=== PATIENT | female | born 1950 | race Hispanic/Latino ===

== ENCOUNTER 2021-05-30 06:33 | Day surgery (SDC) | payer OTHER ==
[2021-05-25 12:19] LABS: Urine Appearance CLEAR (Clear); Urine Bilirubin NEGATIVE (Negative); Urine Blood NEGATIVE (Negative); Urine Color YELLOW (Yellow); Urine Glucose NEGATIVE (Negative); Urine Protein NEGATIVE (Negative); Urine Urobilinogen 0.2 mg/dL (0.2-1.0); Urine pH 5.5 (5.0-7.0)
[2021-05-25 12:49] LABS: Urine Microscopic Reflex NO UMIC
[2021-05-30] MEDS ORDERED: LIDOCAINE 1% W/EPI 1:100,000 MDV 20 ML VIAL ONE (06:56)
[2021-05-30] MEDS ORDERED: Ringers Lactate 1,000 ML IV ONE ×2 (06:56→08:28)
[2021-05-30] MEDS ORDERED: CEFAZOLIN SODIUM 1 GM/VIAL ONE ×2 (06:56→11:29)
[2021-05-30] MEDS ORDERED: NA CHLORIDE 0.9% 100 ML IV ONE (06:56)
[2021-05-30] MEDS ORDERED: VASOPRESSIN 20 UNIT/ML VIAL ONE ×2 (06:57→07:18)
[2021-05-30] MEDS ORDERED: dexAMETHasone 10 MG/ML VIAL ONE (07:04)
[2021-05-30] MEDS ORDERED: KETAMINE HCL 500 MG/5 ML VIAL ONE (07:04)
[2021-05-30] MEDS ORDERED: MIDAZOLAM HCL 2 MG/2 ML INJ ONE (07:04)
[2021-05-30] MEDS ORDERED: NS 0.9% VIAL 10 ML ONE (07:04)
[2021-05-30] MEDS ORDERED: propofoL 200 MG/20 ML VIAL IV ONE (07:04)
[2021-05-30] MEDS ORDERED: LIDOCAINE 1% MPF 5 ML VIAL ONE (07:04)
[2021-05-30] MEDS ORDERED: FENTANYL CITR 250 MCG/5 ML ONE (07:04)
[2021-05-30] MEDS ORDERED: ONDANSETRON 4 MG/2 ML VIAL ONE (07:05)
[2021-05-30] MEDS ORDERED: ROCURONIUM 50 MG/5 ML VIAL IV ONE (07:05)
[2021-05-30] MEDS ORDERED: NS 0.9% VIAL 20 ML ONE (07:18)
[2021-05-30] MEDS: CEFAZOLIN/SWI 2gm 2 GM/20 ML SYR ONE ×2 (07:49→08:00)
[2021-05-30] MEDS ORDERED: GLYCOPYRROLATE 0.2 MG/ML SYR ONE ×2 (08:08→09:51)
[2021-05-30] MEDS ORDERED: LORAZEPAM 2 MG PO PRN (11:49)
[2021-05-30] MEDS ORDERED: IBUPROFEN 200 MG TAB PO PRN (11:50)
[2021-05-30] MEDS ORDERED: MEPERIDINE HCL 25 MG/ML SYR IM PRN (11:50)
[2021-05-30] MEDS ORDERED: PROMETHAZINE INJ 25 MG/ML AMP IV PRN (11:50)
[2021-05-30] MEDS ORDERED: ESTRADIOL 10 MCG VAG SCH (12:00)
--- NOTE | 2021-05-30 12:24 | P.BOP ---
Preoperative diagnosis: stage 3 anterior and apical repair, post defect Postoperative diagnosis: same, ant enterocele, perineocele Primary procedure: Anterior bilateral SSLF colpopexyw biological graft augmentation Secondary procedure: A/P repairs, enterocele repair, perineocele repair, cysto Skid Wrapper: Ynes Groves Estimated blood loss: 100 Specimen: none Findings: 0/+2/+1/6/thin/7.5/-1/-1/na Complications: None Drain(s): Urinary catheter Implants: dermapure biologic graft Fluids & blood products: 1750LR UO 200 Transferred to: Recovery Room Condition: Good
[2021-05-30 12:29] VITALS: TEMP 97.3
[2021-05-30 12:57] VITALS: BP 147/56
[2021-05-30 14:18] VITALS: O2SAT 98
[2021-05-30] MEDS ORDERED: ATORVASTATIN 10 MG TAB PO SCH (21:00)
[2021-05-30] MEDS ORDERED: ZIPRASIDONE 40 MG CAP PO SCH (21:00)
--- NOTE | 2021-05-31 03:21 | OP ---
Date of Procedure: 05/30/2021 Surgeon: Elyssa Irizarry MD Chip Mixing Machine Operator: Ynes Presley. Preoperative Diagnosis: Stage III anterior and apical prolapse, posterior defect. Postoperative Diagnoses: Stage III anterior and apical prolapse, posterior defect, anterior enteroce le and perineocele. Procedures Performed: Anterior approach bilateral sacrospinous ligament fixation; colpopexy with gra ft augmented repair, DermaPure graft was used; then anterior and posterior repairs; and anterior ente rocele repair and perineocele repair and cystoscopy were performed. Anesthesia: General. Estimated Blood Loss: 100. Urine Output: 200. Fluids: LR 1750. Specimens: None. Complications: No complications. Drains: Wang catheter and vaginal packing. Implants: DermaPure biologic graft. Findings: 0, +2, +1, 16, 7.5, -1, -1. These are all her POP-Q scores and then the perineocele was v brendan obvious with the perineal body stretched out and no significant support from the distal posterior wall to the perineal body. This attachment was also detached. The significant defect was also there anterior wall mostly the distal and lateral wall. [place] was als o descended significantly. Posteriorly, there was no enterocele. The enterocele appeared to be comp letely anterior. Procedure In Detail: After informed consent was verified, 2 g of Ancef were given. She was brought to the OR, placed in supine fashion on the operating table. General anesthesia was given. She was p laced in dorsal lithotomy position using Felix stirrups. Lower abdomen, vulva, vagina, and perineum were prepped and draped in a sterile fashion. Wang placed to drain the bladder attached and clamped and retracted superiorly. Allis clamps were placed at the UVJ and slightly below it and then, at th e vaginal apex the wall was. Then, a midline injection with dilute vasopressin was given and an inci rufina made with a 15 blade and extended with the Metzenbaum scissors, then dissection of the bladder f rom the subepithelial tissue, connective tissue from the wall into the paravesical space was done, th en into the pararectal space and a skin tag on the right side was identified and cleaned up and went on to the opposite side and did the same procedure. The prolapse was significant anteriorly, especia lly in the distal one-third as well. So, it was difficult to find the paravaginal space initially on the right side. Once it was found, the suction was very unremarkable. Then, after the sacrospinous ligament was cleaned up, then white line was cleaned and cleared up. Bowel moved medially and bladd er dissected off all the way to the level of the apex and all the way to the left of the bladder neck being careful not to injure the trigone and the ureters. After placing a Capio stitches 2 cm medial to the ischial spine and posterior, and during the rectal exam this stitch appeared to be too close to the rectum, so this was removed and another stitch repla brant about 1 cm centimeter from the ischial spine and this appeared to be very optimal. Although similar dissected was taken on the opposite side after clearing up the rectum from the sacro spinous ligament without any problems. Then, Prolene sutures at both sacrospinous were taken and hel d on clamps. Two PDS sutures were taken on the white lines and held on clamps with the Capio. The e nterocele was repaired with 3-0 Monocryl in a pursestring fashion. Then, the graft was fashioned 8 x 5 x 5 cm, in through the intraspinous diameter and the distal graft was 5 cm wide. The trapezoid wa s taken. Three Prolene sutures were placed, one in the midline and on either sides at the distal vag inal vault, going into the connective tissue here that was present. The 2-0 Prolene was then held on clamps and 2-0 PDS was passed in the distal part of the vaginal canal, which was done out of the radha dder neck. Central suture and 2 lateral sutures were placed with 2-0 PDS. The graft was brought in after being fashioned as a trapezoid and once this was brought in, both apical sutures were tagged on to the graft as well as the distal sutures. PDS sutures were all tied down. Then, the sacrospinous bite was taken through the graft. Rosa stitch was placed and they were tied down. The suture and the knots came undone one right side, so they had to they had to be replaced and the Capio and prolen e had to be replaced and then stitched to the graft edge and then tied down. Once this was done, there was excellent support, I went on to attach the PDS to the lateral wall over the white line, and this was somewhat successful with a good lift of the anterior apical wall. Once this was done, then vaginal closure was done with very minimal epithelial resection and then closure with 2-0 Vicryl in a continuous running fashion. Once the area of the ureters was being dissected, there was some superficial bleeding and 3-0 Vicryl was used to suture this area for hemostasis only. No evidence of any urinary leakage. Then, immediately after placing all the sutures I just wanted t o make sure that there was no obstruction to the ureter here, and a cystoscopy was performed after re moving the Wang and there was excellent jets of urine from both ureteric orifices. No evidence of a ny trauma to the bladder. The Wang was replaced and clamp inserted then, the posterior r epair was done by injecting dilute vasopressin and the posterior one-half of the wall as well as the lateral aspects and perineum and a angelika-shaped incision was made in the distal posterior wall and epithelial lining incised, the rectocele and the rectovaginal septum were dissected from the epitheli al edges on all sides. The septum was fairly intact. She was detached from the perineal body and th e perineal body was very poor. A triangular skin incision was made on the perineal body, from the prior incision and then the skin was excised. The sides were undermined and the deep transverse perianal scar was identified . Once this was done, they were brought together with a 2-0 Vicryl suture x2 in an interrupted fashi on. Then, 2-0 PDS was taken and it was continuously run through the defect and attached from side-to -side and reattached to the perineal body. Once this was all done, then we went ahead and did trimmi ng in the posterior vaginal wall just to avoid a dog-ear and facilitate better healing. Then, 2-0 Vi cryl suture was taken in a continuous running fashion and closed to the hymen. Then, the hymen was c losed up with 3-0 Vicryl continuously on the perineum in a continuous fashion. Once this knot was ti ed, rectal exam was performed. No evidence of any trauma to the rectum or rectosigmoid. There was no necessity although the suspicion seemed high. We will put in a sling if need arises. Packing was placed and taken to PACU in stable condition. YAIR Voice ID: [id number] Report ID: [id number]
[2021-05-31] MEDS ORDERED: HOME MED 1 EA UNK (Divalproex Sodium [Divalproex Sodium Er] 500 MG Tab.Er.24h) PO SCH (09:00)
[2021-05-31] MEDS ORDERED: HOME MED 1 EA UNK (Levothyroxine Sodium [Levothyroxine] 25 MCG Capsule) PO SCH (09:00)
== END 2021-05-30 14:30 | disposition home or self-care (01) ==
LOC: OR 06:33
PROVIDERS: ATTEND Obstetrics & Gynecology
PROC: 0UQF0ZZ Repair Cul-de-sac, Open Approach (ICD-10-PCS; 2021-05-30)
PROC: 0JQC0ZZ Repair Pelvic Region Subcutaneous Tissue and Fascia, Open Approach (ICD-10-PCS; 2021-05-30)
PROC: 0HQ9XZZ Repair Perineum Skin, External Approach (ICD-10-PCS; 2021-05-30)
PROC: 0USG7ZZ Reposition Vagina, Via Natural or Artificial Opening (ICD-10-PCS; principal; 2021-05-30 07:30)
DX: N99.3 Prolapse of vaginal vault after hysterectomy (principal); N95.2 Postmenopausal atrophic vaginitis; N94.11 Superficial (introital) dyspareunia; Z87.440 Personal history of urinary (tract) infections; Z20.822 Contact with and (suspected) exposure to COVID-19
CPT/HCPCS: 86900; 86850; 86901; 81003; 57282; 57265; U0002; U0003; J2704; J2250; J3010; J1100; J0690 ×3; J7120 ×2; J2405